=== PATIENT | male | born 1960 | race Caucasian/White ===

== ENCOUNTER 2024-11-16 20:14 | Emergency (ER) | payer OTHER ==
[~2024-11-16] VITALS: Ht 190.5 cm; Wt 103.4 kg
[2024-11-16] MEDS ORDERED: cefTRIAXone SODIUM 1 GM/VIAL SDV IM ONE (20:45)
[2024-11-16] MEDS ORDERED: DOXYCYCLINE HYCLATE 100 MG/CAP PO ONE (20:45)
[2024-11-16] MEDS ORDERED: PERCOCET 5/325M1 TAB PO (21:04)
[2024-11-16] MEDS ORDERED: DOXYCYCL HYC100 M4 PO (21:04)
[2024-11-16 21:25] VITALS: BP 171/111
== END 2024-11-16 21:25 | disposition home or self-care (01) | DRG 159 ==
LOC: ED 20:14
DX: K04.7 Periapical abscess without sinus (principal); K02.9 Dental caries, unspecified; S02.5XXA Fracture of tooth (traumatic), initial encounter for closed fracture; X58.XXXA Exposure to other specified factors, initial encounter
CPT/HCPCS: J0696